=== PATIENT | female | born 1985 | race Caucasian/White ===

== ENCOUNTER 2023-11-03 11:21 | Emergency (ER) | payer OTHER, SELFPAY ==
[2023-11-03 11:32] VITALS: BP 143/92; PULSE 90; RESP 16; TEMP 37.2; O2SAT 99
--- NOTE | 2023-11-03 11:38 | ED.URI ---
HPI - URI/Sore Throat General Chief Complaint: Upper Respiratory Infection Stated Complaint: throat burning,VELAZQUEZ,nauseated Time Seen by Provider: 11/03/23 12:00 Source: patient and RN notes reviewed Mode of arrival: ambulatory Limitations: no limitations History of Present Illness HPI Narrative: 38-year-old female presents with concern for 2 day history of sore throat, headache, nausea. She reports co-worker had pneumonia. She denies fever, body aches, chills, sweats. She reports cough. Reports she has been taking ibuprofen. MD elicited complaint: nasal congestion Related Data Home Medications Medication Instructions Recorded Confirmed buspirone 7.5 mg tablet 7.5 mg PO DAILY 11/03/23 11/03/23 lamotrigine 100 mg tablet 100 mg PO DAILY 11/03/23 11/03/23 metformin 500 mg tablet 500 mg PO DAILY 11/03/23 11/03/23 nicotine 10 mg/mL nasal spray See Rx Instructions .Route .COMPLEX 11/03/23 11/03/23 (Nicotrol NS) Allergies Allergy/AdvReac Type Severity Reaction Status Date / Time Penicillins Allergy Intermediate Hives / Verified 11/03/23 11:28 Red Face Review of Systems Review of Systems: CONSTITUTIONAL: Denies malaise, chills, sweats, or fever. EYES: Denies visual changes, redness, or discharge. ENT: Reports rhinorrhea, congestion, and sore throat. CARDIOVASCULAR: Denies chest pain, palpitations, or edema. RESPIRATORY: Reports cough. Denies dyspnea. GASTROINTESTINAL: Denies abdominal pain, nausea, vomiting, diarrhea SKIN: Denies rash or itching. MUSCULOSKELETAL: Denies myalgia. NEUROLOGIC: Denies headache. All systems reviewed & are unremarkable except as noted in HPI and below PMFSH Comments At time of signature, agree with nursing past medical, surgical, social and family history. There is no relevant family history pertinent to the presenting complaint Exam Narrative: GENERAL: Well-appearing, well-nourished, and in no acute distress. HEAD: Normocephalic EYES: PERRLA, conjunctivae clear ENT: Nares clear, turbinates edematous and erythematous, clear discharge. Mucous membranes moist. TM pearly hassan with dull light reflex bilaterally; no tragal tenderness. Oropharynx not erythematous without lesions. Tonsils not enlarged and without exudate, no drooling, no hoarseness, no trismus, uvula midline. NECK: Supple. No lymphadenopathy CHEST: Clear to auscultation, breath sounds equal. No wheezing, rhonchi, rales, or stridor. No respiratory distress, speaks in full sentences. HEART: Regular rate and rhythm. No murmur heard. SKIN: Warm, dry, no rash. NEURO: Alert and oriented x3. PSYCH: Normal mood and affect Course Course Emergency Course: Patient is aware of diagnosis, understands and agrees to treatment plan. Anticipatory guidance given. Patient agrees to follow-up as directed and is aware of reasons to seek care at the emergency department. Portions of this record may have been created with voice recognition software Level of Care: Express Care Visit Vital Signs Vital signs: Vital Signs Temperature 98.9 F 11/03/23 11:32 Pulse Rate 90 11/03/23 11:32 Respiratory Rate 16 11/03/23 11:32 Blood Pressure 143/92 H 11/03/23 11:32 Pulse Oximetry 99 11/03/23 11:32 Oxygen Delivery Room Air 11/03/23 11:32 Temperature 98.9 F 11/03/23 11:32 Pulse Rate 90 11/03/23 11:32 Respiratory Rate 16 11/03/23 11:32 Blood Pressure 143/92 H 11/03/23 11:32 Pulse Oximetry 99 11/03/23 11:32 Oxygen Delivery Room Air 11/03/23 11:32 Reviewed. MDM - URI/Sore Throat MDM Narrative Medical decision making narrative: Differential diagnosis considered: Bergeron virus, strep pharyngitis, allergic rhinitis, upper respiratory tract infection, sinusitis, rhinosinusitis, nasopharyngitis. viral pharyngitis, otitis media, otitis externa, pneumonia, bronchitis, viral cough syndrome, viral syndrome, and influenza. Exam findings show no acute concerns or changes; patient is non-toxic appearing and is in
== END 2023-11-03 12:14 | disposition home or self-care (01) ==
PROVIDERS: Emergency Provider Nurse Practitioner; PCP Internal Medicine
DX: J06.9 Acute upper respiratory infection, unspecified (principal); Z20.822 Contact with and (suspected) exposure to COVID-19
CPT/HCPCS: 87081; 87426; 87804; 87880; 99213; G0463